=== PATIENT | female | born 1925 | race Caucasian/White ===

== ENCOUNTER → 2016-12-11 | Outpatient (CLI) | payer MEDICARE, BC ==
[2015-12-19 13:29] VITALS: BP 177/80
--- NOTE | 2016-12-11 17:15 | KCIC ---
Examination: Ultrasound thyroid. HISTORY History of neck pain. COMPARISON None available Findings : The right lobe of thyroid gland measures 3.4 x 1.5 x 1.3 centimeters. The left lobe of the gland is 3.2 x 1.5 x 1.1 centimeters. There is a complex appearing solid nodule identified in the right lobe of the thyroid gland measuring 1.0 x 0.7 x 0.7 centimeters. In the mid right lobe of thyroid gland, there is a 4 millimeters cyst containing tiny calcification. There is a tiny 4 millimeters cyst containing echogenicity identified in the left lobe of thyroid gland inferiorly. There is a 9 millimeter lymph node identified in the right submandibular gland. The isthmus measures 1.3 millimeters in AP dimension. IMPRESSION Thyroid nodules as described above with the largest measuring 1 centimeter in the mid right lobe of thyroid gland. Close interval followup examination is recommended. Electronically signed by: Facundo Burgos (Dec 11, 2016 17:13:36)
== END | disposition home or self-care (01) ==
LOC: KCIC US 14:49
PROVIDERS: ATTEND Internal Medicine
DX: M54.2 Cervicalgia (principal)
CPT/HCPCS: 76536